=== PATIENT | male | born 1990 | race Caucasian/White ===

== ENCOUNTER 2021-01-07 10:26 | Day surgery (SDC) | payer OTHER ==
[2021-01-05 10:52] LABS: COVID AG,FIA SOURCE NASOPHARYNGEAL
[~2021-01-07] VITALS: Ht 185.4 cm; Wt 160.9 kg
[~2021-01-07 10:26] MED LIST: SODIUM CHLORIDE 0.9% 1,000 ML ONE
[2021-01-07] MEDS ORDERED: SODIUM CHLORIDE 0.9% 1,000 ML IV ONE (10:30)
[2021-01-07] MEDS ORDERED: PROPOFOL 1% 20 ML VIAL IVP ONE (16:43)
[2021-01-07] MEDS ORDERED: LIDOCAINE 2% 5 ML JELLY ONE (16:43)
== END 2021-01-07 13:50 | disposition home or self-care (01) ==
LOC: SURGERY 10:26
PROVIDERS: ATTEND Internal Medicine Gastroenterology
DX: K62.5 Hemorrhage of anus and rectum (principal); K64.1 Second degree hemorrhoids; B96.89 Other specified bacterial agents as the cause of diseases classified elsewhere; K29.50 Unspecified chronic gastritis without bleeding; E66.01 Morbid (severe) obesity due to excess calories; Z68.42 Body mass index [BMI] 45.0-49.9, adult
CPT/HCPCS: 43239; 45378; 87426; 88305; 88312; 88313; C1769; C9803; J2704; J7030